=== PATIENT | female | born 1955 | race Hispanic/Latino ===

== ENCOUNTER 2017-08-31 12:59 | Emergency (ER) | payer SELFPAY ==
[2017-08-31 13:12] VITALS: TEMP 99.4
[2017-08-31] MEDS ORDERED: SODIUM CHLORIDE 0.9% 1000ML 1,000 ML IVS ONE (13:35)
[2017-08-31] MEDS ORDERED: PROMETHAZINE HCL INJ 12.5 MG in SODIUM CHLORIDE 0.9% 50ML 50 ML IVPB ONE (13:35)
--- NOTE | 2017-08-31 13:39 | ED.PDOC ---
History of Present Illness - General Chief Complaint: GI Problem Stated Complaint: vomiting Time Seen by Provider: 08/31/17 13:30 Information Source: patient Exam Limitations: no limitations - History of Present Illness Initial Comments: SHE STARTED VOMITING YESTERDAY ASSOCIATED WITH ABDOMINAL PAIN, BUT ONLY WHENEVER SHE VOMITS. DENIES ANY DIARRHEA. BUT COMPLAINTS OF CHILLS. Abdominal Pain Onset Location: epigastric Pain Radiation: no radiation Quality: mild Timing/Duration: days - TWO DAYS Improving Factors: nothing Worsening Factors: nothing Associated Symptoms: denies symptoms Review of Systems - Review of Systems Constitutional: States: chills, malaise EENTM: States: nose congestion Respiratory: States: no symptoms reported Cardiology: States: no symptoms reported Gastrointestinal/Abdominal: States: abdominal pain, nausea, vomiting Musculoskeletal: States: no symptoms reported Skin: States: no symptoms reported Neurological: States: no symptoms reported Endocrine: States: no symptoms reported Hematologic/Lymphatic: States: no symptoms reported All other Systems: Reviewed and Negative Past Medical History (General) - Patient Medical History Hx Stroke: No Hx Congestive Heart Failure: No Hx Diabetes: No Surgical History: appendectomy, cholecystectomy - Vaccination History Hx Influenza Vaccination: No Hx Pneumococcal Vaccination: No - Social History Hx Tobacco Use: Yes Family Medical History - Family History Mother Family History: Unknown Living Status: Unknown Physical Exam - Physical Exam General Appearance: Alert, Anxious, Well Groomed, Well Hydrated, Well Nourished Eyes, Ears, Nose, Throat Exam: PERRL/EOMI, normal ENT inspection, TMs normal, pharynx normal Neck: non-tender, full range of motion Respiratory: chest non-tender, lungs clear, normal breath sounds, no respiratory distress, no accessory muscle use Cardiovascular/Chest: normal peripheral pulses, regular rate, rhythm, no edema, no gallop, no JVD, no murmur Peripheral Pulses: No deficit Gastrointestinal/Abdominal: non tender, soft, no organomegaly, no pulsatile mass Back Exam: normal inspection Extremity: normal range of motion Neurologic: no motor/sensory deficits, alert, normal mood/affect, oriented x 3 Skin Exam: normal color Lymphatic: no adenopathy Progress - Results/Orders Results/Orders: THE LABORATORY IS RESULTED. [place] 83808 WBC WITH A SHIFT. HER URINE HAS 10 -20 WBC WITH NITRATES POSITIVE AND THE CMP HAS MOLD HYPOKALEMIA. SHE WILL BE DISCHARGED HOME. Departure - Departure Clinical Impression: Urinary tract infection Qualifiers: Urinary tract infection type: acute cystitis Disposition: Discharge to Home or Self Care Condition: Good Departure Forms: ED Discharge - Pt. Copy, Patient Portal Self Enrollment Instructions: Urinary Tract Infection Referrals: Jorge Sabillon MD [Family Provider] - 1-2 Weeks Prescriptions: Ondansetron HCl [Zofran] 4 mg PO Q8HR #6 ml Nitrofurantoin Monohydrate Mac [Macrobid] 100 mg PO BID #20 cap Home Medications: Ambulatory Orders Nitrofurantoin Monohydrate Mac [Macrobid] 100 mg PO BID #20 cap 08/31/17 Ondansetron HCl [Zofran] 4 mg PO Q8HR #6 ml 08/31/17
[2017-08-31] MEDS ORDERED: SODIUM CHLORIDE 0.9% 50ML 50 ML ONE (13:56)
[2017-08-31] MEDS ORDERED: PROMETHAZINE HCL INJ 25 MG/ML VIAL ONE (13:56)
[2017-08-31] MEDS ORDERED: cefTRIAXone SODIUM 1 GM in SODIUM CHL 0.9% 50ML MIN-BAG+ 50 ML IVPB ONE (15:01)
[2017-08-31] MEDS ORDERED: SODIUM CHL 0.9% 50ML MIN-BAG+ 50 ML IVPB ONE (15:06)
[2017-08-31] MEDS ORDERED: cefTRIAXone SODIUM 1 GM VIAL ONE (15:06)
[2017-08-31 17:09] VITALS: BP 158/68; O2SAT 93
== END 2017-08-31 17:08 | disposition home or self-care (01) ==
LOC: ER 12:59
DX: N30.00 Acute cystitis without hematuria (principal)
CPT/HCPCS: 36415; 80053; 81001; 85025; 87086; 87088; 87186; 87502; A4216; J0696; J2550; J7030; J7050